=== PATIENT | female | born 1955 | race Caucasian/White ===

== ENCOUNTER → 2023-08-19 | Outpatient (CLI) | payer MEDICARE ==
[2023-08-19 09:42] LABS: African American GFR (CKD) 79 (>60 ml/min/1.73 sqM); Blood Urea Nitrogen 30 mg/dL (7-17); Non-African American GFR(CKD) 69 (>60 ml/min/1.73 sqM)
--- NOTE | 2023-08-19 11:30 | CT ---
EXAMINATION TYPE: CT soft tissue neck w con DATE OF EXAM: 08/19/2023 10:11 AM COMPARISON: None available. HISTORY: Submandibular absccess, RT side, marked by BB. Pt recently had lower wisdom tooth and molar removed. CT DLP: 488.20 mGycm Automated exposure control for dose reduction was used. CONTRAST: CT scan of the neck is performed following with IV Contrast, patient injected with 100 mL of Isovue 3 00. Axial images are obtained, coronal and sagittal reformatted images are reviewed. FINDINGS: Airway: No gross abnormality seen. Parotid/submandibular glands: No gross abnormality seen. Carotid/Vascular Structures: No significant vascular abnormalities. Osseous Structures: Other: There is soft tissue stranding seen within the right submandibular region measuring 3.2 x 2.3 cm in diameter with no drainable fluid collection or abscess. This may relate to a phlegmonous collec tion. 1 cm right thyroid nodule. IMPRESSION: 1. Subcutaneous stranding within the right submandibular region is likely related to flight within. T here is no definitive drainable fluid collection or abscess. No subcutaneous air is otherwise identif ied. 2. No additional acute abnormalities identified.
== END | disposition home or self-care (01) ==
LOC: RADCTMAIN 08:47
PROVIDERS: ATTEND Family Medicine
DX: K12.2 Cellulitis and abscess of mouth (principal)
CPT/HCPCS: 82565; 84520; 70491; 36415; Q9967